=== PATIENT | male | born 1935 | race Caucasian/White ===

== ENCOUNTER 2023-11-27 07:00 | Emergency (ER) | payer BC ==
[~2023-11-27] VITALS: Ht 180.3 cm; Wt 98.0 kg
[2023-11-27 07:03] VITALS: TEMP 98; O2SAT 100
[2023-11-27 09:08] VITALS: BP 132/87; PULSE 82; RESP 15
== END 2023-11-27 13:14 | disposition home or self-care (01) ==
LOC: ER 08:08
DX: R33.9 Retention of urine, unspecified (principal)
CPT/HCPCS: 51702; 99284

== ENCOUNTER 2023-12-08 15:27 | Emergency (ER) | payer BC ==
[~2023-12-08] VITALS: Ht 165.1 cm; Wt 75.0 kg
[2023-12-08 15:30] VITALS: BP 162/70; PULSE 69; RESP 16; O2SAT 100
== END 2023-12-08 17:00 | disposition home or self-care (01) ==
LOC: ER 15:27
DX: T83.098A Other mechanical complication of other urinary catheter, initial encounter (principal); I10 Essential (primary) hypertension; Z85.9 Personal history of malignant neoplasm, unspecified; X58.XXXA Exposure to other specified factors, initial encounter
CPT/HCPCS: 99283

== ENCOUNTER 2023-12-17 07:49 | Emergency (ER) | payer MEDICAID, BC ==
[~2023-12-17] VITALS: Ht 170.2 cm; Wt 87.0 kg
[2023-12-17 07:55] VITALS: O2SAT 96
[2023-12-17 08:15] VITALS: TEMP 99.5
[2023-12-17] MEDS: KETOROLAC 60MG/2ML VIAL IM STA (09:05)
[2023-12-17 09:07] LABS: BASOPHILS % 0.5 % (0.0-2.0); EOSINOPHILS % 1.3 % (0.0-5.0); HEMATOCRIT. 40.9 % (42.0-52.0); HEMOGLOBIN. 14.2 g/dL (14.0-18.0); LYMPHOCYTES % 13.9 % (20.0-50.0); MEAN CORPUSCULAR HEMOGLOBIN 32.5 pg (28.0-32.0); MEAN CORPUSCULAR HGB CONC 34.7 g/dL (31.0-37.0); MEAN CORPUSCULAR VOLUME 93.8 fL (80.0-94.0); MEAN PLATELET VOLUME 7.5 fl (7.4-10.4); MONOCYTES % 8.9 % (2.0-8.0); NEUTROPHILS % 75.4 % (40.0-76.0); PLATELET 219 x1000/uL (130-400); RED BLOOD CELL COUNT 4.36 mill/uL (4.7-6.1); RED CELL DISTRIBUTION WIDTH 12.9 % (11.6-14.6); WHITE BLOOD COUNT 8.7 x1000/uL (4.5-11.0)
[2023-12-17 09:14] LABS: PROTHROMBIN TIME 11.1 sec (9.6-11.0)
[2023-12-17 09:18] LABS: CLARITY URINE CLEAR (CLEAR); COLOR URINE YELLOW (YELLOW); GLUCOSE URINE NEGATIVE (NEGATIVE); KETONES URINE NEGATIVE (NEGATIVE); LEUKOCYTE ESTERASE URINE 2+ (NEGATIVE); NITRITE URINE NEGATIVE (NEGATIVE); OCCULT BLOOD URINE 3+ (NEGATIVE); PH URINE 7.5 (4.5-8.0); PROTEIN URINE TRACE (NEGATIVE); SPECIFIC GRAVITY URINE 1.011 (1.005-1.030)
[2023-12-17 09:28] LABS: SQUAMOUS EPITHELIAL CELL URINE RARE /lpf (RARE/1+)
[2023-12-17 09:29] LABS: RBC URINE 50-100 /hpf (0-2)
[2023-12-17 09:29] LABS: ALANINE AMINOTRANSFERASE 13 IU/L (10-49); ALBUMIN 4.2 g/dL (3.2-4.8); ASPARTATE AMINOTRANSFERASE 29 IU/L (<34); BILIRUBIN TOTAL 0.7 mg/dL (0.1-1.0); CALCIUM 9.1 mg/dL (8.7-10.4); CARBON DIOXIDE 29 mEq/L (21-32); CHLORIDE 92 mEq/L (98-107); CREATININE 0.9 mg/dL (0.6-1.3); GLUCOSE 104 mg/dL (70-105); POTASSIUM 3.6 mEq/L (3.5-5.1); SODIUM 127 mEq/L (136-145); UREA NITROGEN BLOOD 30 mg/dL (9-23)
[2023-12-17 09:30] LABS: WBC URINE 15-25 /hpf (0-2)
[2023-12-17 09:31] LABS: BACTERIA URINE 2+
[2023-12-17 13:31] VITALS: BP 156/74; PULSE 80; RESP 18
== END 2023-12-17 13:00 | disposition home or self-care (01) ==
LOC: ER 07:49
DX: T83.091A Other mechanical complication of indwelling urethral catheter, initial encounter (principal); Y92.89 Other specified places as the place of occurrence of the external cause
CPT/HCPCS: 99283; 80053; 81003; 85025; 85610; 87086; 87186; 87077; 36415; 96372; J1885; 51702

== ENCOUNTER 2023-12-24 16:16 | Emergency (ER) | payer MEDICAID, BC ==
[~2023-12-24] VITALS: Ht 167.6 cm; Wt 78.0 kg
[2023-12-24 16:17] VITALS: O2SAT 96
[2023-12-24 17:26] LABS: CLARITY URINE CLEAR (CLEAR); COLOR URINE YELLOW (YELLOW); GLUCOSE URINE NEGATIVE (NEGATIVE); KETONES URINE NEGATIVE (NEGATIVE); LEUKOCYTE ESTERASE URINE 1+ (NEGATIVE); NITRITE URINE NEGATIVE (NEGATIVE); OCCULT BLOOD URINE 1+ (NEGATIVE); PH URINE 6.5 (4.5-8.0); PROTEIN URINE TRACE (NEGATIVE); SPECIFIC GRAVITY URINE 1.016 (1.005-1.030)
[2023-12-24] MEDS: SODIUM CHLORIDE 0.9% 1,000 ML IV ONE (17:41)
[2023-12-24 17:44] LABS: BASOPHILS % 0.5 % (0.0-2.0); HEMATOCRIT. 41.1 % (42.0-52.0); HEMOGLOBIN. 14.3 g/dL (14.0-18.0); LYMPHOCYTES % 18.5 % (20.0-50.0); MEAN CORPUSCULAR HEMOGLOBIN 32.9 pg (28.0-32.0); MEAN CORPUSCULAR HGB CONC 34.8 g/dL (31.0-37.0); MEAN CORPUSCULAR VOLUME 94.6 fL (80.0-94.0); MEAN PLATELET VOLUME 7.7 fl (7.4-10.4); MONOCYTES % 10.3 % (2.0-8.0); NEUTROPHILS % 69.7 % (40.0-76.0); PLATELET 302 x1000/uL (130-400); RED BLOOD CELL COUNT 4.35 mill/uL (4.7-6.1); RED CELL DISTRIBUTION WIDTH 13.1 % (11.6-14.6); WHITE BLOOD COUNT 7.6 x1000/uL (4.5-11.0)
[2023-12-24 17:45] LABS: BACTERIA URINE 1+; SQUAMOUS EPITHELIAL CELL URINE FEW /lpf (RARE/1+)
[2023-12-24 17:57] LABS: ALANINE AMINOTRANSFERASE 11 IU/L (10-49); ALBUMIN 4.1 g/dL (3.2-4.8); ASPARTATE AMINOTRANSFERASE 25 IU/L (<34); BILIRUBIN TOTAL 0.7 mg/dL (0.1-1.0); CALCIUM 9.1 mg/dL (8.7-10.4); CARBON DIOXIDE 27 mEq/L (21-32); CHLORIDE 99 mEq/L (98-107); CREATININE 0.9 mg/dL (0.6-1.3); GLUCOSE 100 mg/dL (70-105); POTASSIUM 3.1 mEq/L (3.5-5.1); PROTEIN TOTAL 7.9 g/dL (6.0-8.3); SODIUM 132 mEq/L (136-145); UREA NITROGEN BLOOD 36 mg/dL (9-23)
[2023-12-24] MEDS ORDERED: CIPR500T5 MT (18:21)
[2023-12-24] MEDS: CEFTRIAXONE 1GM/50ML 50 ML IV ONE (18:37)
[2023-12-24] MEDS: POTASSIUM CHLORIDE 20MEQ TABLET SR PO ONE (18:37)
[2023-12-24 19:20] VITALS: BP 126/78; PULSE 90; RESP 16; TEMP 98
== END 2023-12-24 19:55 | disposition home or self-care (01) ==
LOC: ER 16:16
DX: T83.028A Displacement of other urinary catheter, initial encounter (principal); N39.0 Urinary tract infection, site not specified; E87.6 Hypokalemia; I10 Essential (primary) hypertension
CPT/HCPCS: 99284; 96365; 96361; 80053; 81003; 85025; 36415; 51702; J0696; J7030